=== PATIENT | female | born 1950 | race Caucasian/White ===

== ENCOUNTER 2024-12-17 09:25 | Emergency (ER) | payer MEDICARE ==
[~2024-12-17] VITALS: Ht 154.9 cm; Wt 59.4 kg
[2024-12-17 12:16] VITALS: PULSE 72; RESP 18; TEMP 98.3; O2SAT 99
== END 2024-12-17 12:18 | disposition home or self-care (01) ==
LOC: FSED 09:35
DX: M79.605 Pain in left leg (principal); M79.604 Pain in right leg; R07.89 Other chest pain; R94.31 Abnormal electrocardiogram [ECG] [EKG]
CPT/HCPCS: 71046; 93005; 99284